=== PATIENT | male | born 1930 | race Caucasian/White ===

== ENCOUNTER 2017-07-29 02:00 | Emergency (ER) | payer MEDICARE ==
[~2017-07-29] VITALS: Ht 165.1 cm; Wt 52.0 kg
[2017-07-29 02:18] VITALS: BP 149/79; PULSE 82; RESP 18; TEMP 98.5; O2SAT 100
[2017-07-29 02:30] VITALS: O2SAT 96
--- NOTE | 2017-07-29 02:50 | PD ---
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 There is some spindle of blood bright red blood on the mask of the nonrebreather patient is satting 97 on the pulse ox on arrival. I order soft tissue lateral of the neck and the chief technologist places the recannulize is the stoma with the trach that came with the patient [facility] Past Medical History Diabetes: Yes Patient Takes Glucophage: No Psychiatric: Yes (DEMENTIA) Respiratory: Yes (RESP. FAILURE) Tetanus Vaccination: Unknown Past Surgical History Surgical History: Unable to Obtain Other Surgery: Yes (TRACH, G. TUBE.) Social History Alcohol Use: No Tobacco Use: No Substance Use: No Allergies-Medications (Allergen,Severity, Reaction): Coded Allergies: tomato (Unverified Allergy, Severe, 07/29/17) Reported Meds & Prescriptions Reported Meds & Active Scripts Active Reported Mupirocin Topical (Mupirocin) 2 % Oint 1 Applic TOPICAL BID Duoneb (Ipratropium-Albuterol Neb) 0.5-2.5 Mg/3 Ml Neb 1 Nebule INH Q8HR NEB Hyoscyamine Sulfate 0.125 Mg Sub Mg PEG Q4HR Heparin Lock Flush Inj (Heparin (Porcine) Lock Inj) 10 Unit/Ml Inj 5,000 SQ BID Glucerna (Nut.tx.glucose Intolerance,Soy) 1 Each Bar 50 Ml PEG Docusate Sodium 100 Mg Cap 100 Mg PEG BID Bisacodyl Laxative Supp (Bisacodyl) 10 Mg Supp 10 Mg RECTAL DAILY PRN Acetaminophen Liq (Acetaminophen) 160 Mg/5 Ml Elx 160 Mg PO Q4-6H PRN Metoclopramide (Metoclopramide HCl) 5 Mg Tab 5 Mg PO QID Humalog Inj (Insulin Human Lispro) 1,000 Unit/10 Ml Vial 5-25 Units SQ ACHS Max dose at bedtime:( )units; sugars < 70,(0)units; sugars 150-199,(5)units; sugars 200-249,(10)units; sugars 250-299,(15)units; sugars 300-349,(20)units; sugars more than 349,(25)units. Ferrous Sulfate Liq (Ferrous Sulfate) 300 Mg/5 Ml Soln 325 Mg PO BID Famotidine 20 Mg Tab 20 Mg PO DAILY Review of Systems ROS Limitations: Poor Historian, Other: (non verbal) Physical Exam Narrative GENERAL: Patient is nonverbal in no obvious distress he has some blood in the mask of the nonrebreather over his trach opening SKIN: Warm and dry. HEAD: Atraumatic. Normocephalic. EYES: Pupils equal and round. No scleral icterus. No injection or drainage. ENT: No nasal bleeding or discharge. Mucous membranes pink and moist. NECK: he has open stoma without trach , slight blood at the stoma no respiratory distress CARDIOVASCULAR: Regular rate and rhythm. RESPIRATORY: No accessory muscle use. Clear to auscultation. Breath sounds equal bilaterally. No respiratory distress GASTROINTESTINAL: Abdomen PEG in place MUSCULOSKELETAL: Extremities without clubbing, cyanosis, or edema. No obvious deformities. NEUROLOGICAL: Patient is nonverbal no obvious focal deficits patient is awake however he does not respond to questions Data Data Last Documented VS Vital Signs Date Time Temp Pulse Resp B/P (MAP) Pulse Ox O2 Delivery O2 Flow Rate FiO2 07/29/17 07:22 159/78 (105) 99 Trach Collar 15.00 50 07/29/17 07:21 71 18 07/29/17 02:18 98.5 Orders Orders Soft Tissue Neck (07/29/17 ) Ed Discharge Order (07/29/17 07:20) MDM Medical Decision Making Medical Screen Exam Complete: Yes Emergency Medical Condition: Yes Differential Diagnosis trach fall out vs pilled out vs post bleed airway Narrative Course trach replaced by resp therapist and suctioned and sent back to [facility] Diagnosis Primary Impression: Tracheostomy complication Qualified Codes: J95.00 - Unspecified tracheostomy complication Patient Instructions: General Instructions, Tracheostomy Care (ED) Disposition: 03 DISCHARGE TO SNF Condition: Paul Auguste MD Jul 29, 2017 02:50
--- NOTE | 2017-07-29 03:02 | RADRPT ---
EXAM DATE/TIME: 07/29/2017 02:31 [facility] COMPARISON: No previous studies available for comparison. INDICATIONS : Tracheostomy tube reinsertion. MEDICAL HISTORY : None. SURGICAL HISTORY : Tracheostomy ENCOUNTER: Initial ACUITY: 1 day PAIN SCORE: 0/10 LOCATION: neck FINDINGS: Trach collar present and appears grossly normally positioned. The tip cannot be seen on the lateral, obscured by overlying structures. CONCLUSION: The tracheostomy tube appears to be grossly normally positioned. Herman Christina MD on July 29, 2017 at 3:00 Board Certified Radiologist. This report was verified electronically.
[2017-07-29 06:06] VITALS: PULSE 73; RESP 16; O2SAT 95
[2017-07-29] MEDS ORDERED: HUMALOG SQ (06:50)
[2017-07-29] MEDS ORDERED: METO5TAB PO (06:50)
[2017-07-29] MEDS ORDERED: DOCU100S PO (06:50)
[2017-07-29] MEDS ORDERED: FAMO20TA2 PO (06:50)
[2017-07-29] MEDS ORDERED: FERR300S PO (06:50)
[2017-07-29] MEDS ORDERED: HYOS1TAB9 PO (06:50)
[2017-07-29 07:21] VITALS: BP 159/78; PULSE 71; RESP 18; O2SAT 100
[2017-07-29 07:22] VITALS: BP 159/78
[2017-07-30] MEDS ORDERED: IPRASOL INH (06:50)
[2017-07-30] MEDS ORDERED: [UNRECOGNIZED DRUG - CODE] PEG (06:50)
[2017-07-30] MEDS ORDERED: BISA10SU24 RECTAL (06:50)
[2017-07-30] MEDS ORDERED: [UNRECOGNIZED DRUG - CODE] SQ (06:50)
[2017-07-30] MEDS ORDERED: MUPI2OIN TOPICAL (06:50)
[2017-07-30] MEDS ORDERED: HYOS0.1261 PEG (06:50)
[2017-07-30] MEDS ORDERED: DOCU100C15 PEG (06:50)
[2017-07-30] MEDS ORDERED: ACET160E PO (06:50)
== END 2017-07-29 11:01 ==
LOC: NEPC 02:00
DX: J95.00 Unspecified tracheostomy complication (principal); E11.9 Type 2 diabetes mellitus without complications; F03.90 Unspecified dementia, unspecified severity, without behavioral disturbance, psychotic disturbance, mood disturbance, and anxiety; Z79.4 Long term (current) use of insulin; Z79.899 Other long term (current) drug therapy
CPT/HCPCS: 70360; 99283

== ENCOUNTER 2017-07-30 01:41 | Inpatient (IN) | payer MEDICARE ==
[~2017-07-30] VITALS: Ht 188 cm; Wt 68.5 kg
[2017-07-30] VITALS (23 sets, daily range): BP systolic 73–145; BP diastolic 41–70; PULSE 62–94; RESP 14–20; TEMP 97.7–98.4; O2SAT 98–100
[~2017-07-30 01:41] MED LIST: DOCU100S PO; FAMO20TA2 PO; FERR300S PO; HUMALOG SQ; HYOS1TAB9 PO; METO5TAB PO
[2017-07-30] MEDS ORDERED: SODIUM CHLORIDE 0.9% FLUSH 10 ML FLUSH IVF PRN (01:45)
--- NOTE | 2017-07-30 03:11 | PD ---
HPI Chief Complaint: Respiratory Distress Time Seen by Provider: 01:45 Travel History International Travel<30 days: No Contact w/Intl Traveler<30days: No Traveled to known affect area: No History of Present Illness HPI 86-year-old male residential patient with history of dementia, diabetes, trach and PEG, was here in the hospital yesterday because his tracheostomy fell out, tracheostomy was replaced in the ER. He is back here because he has been having rapid breathing, cyanotic, low saturations of 20% according to EMS when they got there. Apparently he has been having problems all day. He was disoriented although it appears that his baseline is GCS of 9. He is not able to give me any further history. They have been trying to suction his trach all day without improvement. Modifying Factors: None Associated Signs & Symptoms: Respiratory distress, hypoxia, cyanosis Risk Factors: Recent trach replacement PFSH Past Medical History Diabetes: Yes Patient Takes Glucophage: No Psychiatric: Yes (DEMENTIA) Respiratory: Yes (RESP. FAILURE) Past Surgical History Other Surgery: Yes (TRACH, G. TUBE.) Social History Alcohol Use: No Tobacco Use: No Substance Use: No Allergies-Medications (Allergen,Severity, Reaction): Coded Allergies: tomato (Unverified Allergy, Severe, 07/29/17) Reported Meds & Prescriptions Reported Meds & Active Scripts Active Reported Metoclopramide (Metoclopramide HCl) 5 Mg Tab 5 Mg PO QID Hyoscyamine (Hyoscyamine Sulfate) 0.125 Mg Tab 0.125 Mg PO Q4H Humalog Inj (Insulin Human Lispro) 1,000 Unit/10 Ml Vial 5-25 Units SQ ACHS Max dose at bedtime:( )units; sugars < 70,(0)units; sugars 150-199,(5)units; sugars 200-249,(10)units; sugars 250-299,(15)units; sugars 300-349,(20)units; sugars more than 349,(25)units. Ferrous Sulfate Liq (Ferrous Sulfate) 300 Mg/5 Ml Soln 325 Mg PO BID Docusate Sodium Liq (Docusate Sodium) 50 Mg/5 Ml Liq 100 Mg PO BID Famotidine 20 Mg Tab 20 Mg PO DAILY Review of Systems ROS Limitations: Altered Mental Status Physical Exam Narrative GENERAL: Well-developed elderly white male patient who is pegged and trached, awake but not oriented. In mild respiratory distress. Back valve mass in progress through trach. SKIN: Focused skin assessment warm/dry. HEAD: Atraumatic. Normocephalic. EYES: Pupils equal and round. No scleral icterus. No injection or drainage. ENT: No nasal bleeding or discharge. Mucous membranes pink and moist. NECK: Trachea midline. No JVD. Tracheostomy appears to be in place, bringing up brownish sputum. CARDIOVASCULAR: Regular rate and rhythm. No murmur appreciated. RESPIRATORY: Moderate accessory muscle use. Bilateral pulmonary crackles especially pronounced in the right side. Breath sounds equal bilaterally. GASTROINTESTINAL: Abdomen soft, non-tender, nondistended. Hepatic and splenic margins not palpable. MUSCULOSKELETAL: No obvious deformities. No clubbing. No cyanosis. No edema. NEUROLOGICAL: Awake and alert. Not oriented. Moving all 4 extremities. Not following directions. PSYCHIATRIC: Awake and not oriented; insight and judgment poor. Data Data Last Documented VS Vital Signs Date Time Temp Pulse Resp B/P (MAP) Pulse Ox O2 Delivery O2 Flow Rate FiO2 07/30/17 05:05 68 14 110/58 (75) 100 Ventilator 60 07/30/17 01:43 97.7 Orders Orders Complete Blood Count With Diff (07/30/17 01:45) Comprehensive Metabolic Panel (07/30/17:45) B-Type Natriuretic Peptide (07/30/17:45) Act Partial Throm Time (Ptt) (07/30/17:45) Prothrombin Time / Inr (Pt) (07/30/17:45) Ckmb (Isoenzyme) Profile (07/30/17:45) Troponin I (07/30/17:45) Arterial Blood Gas (Abg) (07/30/17:45) Blood Culture (07/30/17:45) Iv Access Insert/Monitor (07/30/17:45) Electrocardiogram (07/30/17:45) Ecg Monitoring (07/30/17:45) Oximetry (07/30/17:45) Oxygen Administration (07/30/17:45) Chest, Single Ap (07/30/17:45) Sodium Chloride 0.9% Flush (Ns Flush) (07/30/17:45) Sputum Culture And Gram Stain (07/30/17 01:54) Sodium Chlorid 0.9% 500 Ml Inj (Ns 500 M (07/30/17 03:30) Lactic Acid Sepsis Protocol (07/30/17 03:41) CKMB (07/30/17 01:55) CKMB% (07/30/17 01:55) Sodium Chlor 0.9% 1000 Ml Inj (Ns 1000 M (07/30/17 04:45) Azithromycin Inj (Zithromax Inj) (07/30/17 05:24) Cefepime Inj (Maxipime Inj) (07/30/17 05:24) Influenzae A/B Antigen (07/30/17 05:24) Admit Order (Ed Use Only) (07/30/17 05:24) Labs Laboratory Tests Test 07/30/17 01:55 07/30/17 02:06 07/30/17 03:55 White Blood Count 8.4 TH/MM3 Red Blood Count 2.91 MIL/MM3 Hemoglobin 9.3 GM/DL Hematocrit 26.8 % Mean Corpuscular Volume 92.2 FL Mean Corpuscular Hemoglobin 31.9 PG Mean Corpuscular Hemoglobin Concent 34.6 % Red Cell Distribution Width 15.0 % Platelet Count 222 TH/MM3 Mean Platelet Volume 7.6 FL Neutrophils (%) (Auto) 86.6 % Lymphocytes (%) (Auto) 6.4 % Monocytes (%) (Auto) 5.8 % Eosinophils (%) (Auto) 0.6 % Basophils (%) (Auto) 0.6 % Neutrophils # (Auto) 7.3 TH/MM3 Lymphocytes # (Auto) 0.5 TH/MM3 Monocytes # (Auto) 0.5 TH/MM3 Eosinophils # (Auto) 0.1 TH/MM3 Basophils # (Auto) 0.0 TH/MM3 CBC Comment DIFF FINAL Differential Comment Prothrombin Time 10.8 SEC Prothromb Time International Ratio 1.1 RATIO Activated Partial Thromboplast Time 31.3 SEC Blood Urea Nitrogen 44 MG/DL Creatinine 1.12 MG/DL Random Glucose 144 MG/DL Total Protein 6.3 GM/DL Albumin 2.1 GM/DL Calcium Level 8.2 MG/DL Alkaline Phosphatase 151 U/L Aspartate Amino Transf (AST/SGOT) 62 U/L Alanine Aminotransferase (ALT/SGPT) 56 U/L Total Bilirubin 0.3 MG/DL Sodium Level 134 MEQ/L Potassium Level 4.8 MEQ/L Chloride Level 94 MEQ/L Carbon Dioxide Level 35.1 MEQ/L Anion Gap 5 MEQ/L Estimat Glomerular Filtration Rate 62 ML/MIN Total Creatine Kinase 121 U/L Creatine Kinase MB 7.9 NG/ML Troponin I LESS THAN 0.02 NG/ML B-Type Natriuretic Peptide 173 PG/ML Blood Gas Puncture Site RT RADIAL Blood Gas Patient Temperature 98.6 Blood Gas HCO3 36 mmol/L Blood Gas Base Excess 11.2 mmol/L Blood Gas Oxygen Saturation 96 % Arterial Blood pH 7.43 Arterial Blood Partial Pressure CO2 56 mmHg Arterial Blood Partial Pressure O2 115 mmHG Arterial Blood Oxygen Content 12.2 Vol % Arterial Blood Carboxyhemoglobin 2.1 % Arterial Blood Methemoglobin 0.4 % Blood Gas Hemoglobin 8.9 G/DL Oxygen Delivery Device VENTILATOR Blood Gas Ventilator Setting PRVC Lactic Acid Level 1.3 mmol/L MDM Medical Decision Making Medical Screen Exam Complete: Yes Emergency Medical Condition: Yes Medical Record Reviewed: Yes Interpretation(s) Laboratory Tests Test 07/30/17 01:55 07/30/17 02:06 07/30/17 03:55 Red Blood Count 2.91 MIL/MM3 (4.50-5.90) Hemoglobin 9.3 GM/DL (13.0-17.0) Hematocrit 26.8 % (39.0-51.0) Neutrophils (%) (Auto) 86.6 % (16.0-70.0) Lymphocytes (%) (Auto) 6.4 % (9.0-44.0) Lymphocytes # (Auto) 0.5 TH/MM3 (1.0-4.8) Activated Partial Thromboplast Time 31.3 SEC (24.3-30.1) Blood Urea Nitrogen 44 MG/DL (7-18) Random Glucose 144 MG/DL (74-106) Total Protein 6.3 GM/DL (6.4-8.2) Albumin 2.1 GM/DL (3.4-5.0) Calcium Level 8.2 MG/DL (8.5-10.1) Alkaline Phosphatase 151 U/L (45-117) Aspartate Amino Transf (AST/SGOT) 62 U/L (15-37) Sodium Level 134 MEQ/L (136-145) Chloride Level 94 MEQ/L (98-107) Carbon Dioxide Level 35.1 MEQ/L (21.0-32.0) Estimat Glomerular Filtration Rate 62 ML/MIN (>89) Creatine Kinase MB 7.9 NG/ML (0.5-3.6) Troponin I LESS THAN 0.02 NG/ML B-Type Natriuretic Peptide 173 PG/ML (0-100) Blood Gas HCO3 36 mmol/L (22-26) Blood Gas Base Excess 11.2 mmol/L (-2-2) Arterial Blood pH 7.43 (7.380-7.420) Arterial Blood Partial Pressure CO2 56 mmHg (38-42) Blood Gas Hemoglobin 8.9 G/DL (12.0-16.0) Differential Diagnosis Pneumonia versus aspiration versus CHF versus trach malfunction Narrative Course Chest x-ray shows bilateral infiltrates throughout the lungs concerning for bilateral pneumonia. Patient was fairly hypotensive and several boluses of IV fluids were given in the ER. IV antibiotics were initiated after blood cultures were drawn. 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 Aggregate critical care time was 30 minutes. Time to perform other separately billable procedures was not included in the critical care time. My time did not include minutes spent treating any other patients simultaneously or on activities that did not directly contribute to the patient's treatment. The services I provided to this patient were to treat and/or prevent clinically significant deterioration that could result in: Worsening sepsis, respiratory arrest, I provided critical care services requiring my management, as noted below: Chart data review, documentation time, medication orders and management, vital sign assessments/reviewing monitor data, ordering and reviewing lab tests, ordering and interpreting/reviewing x-rays and diagnostic studies, care of the patient and discussion of the patient with the admitting physicians. Diagnosis Primary Impression: Respiratory distress Additional Impressions: Bilateral pneumonia Hypoxia Admitting Information Admitting Physician Requests: Admit Gold Clarke MD Jul 30, 2017 03:11
--- NOTE | 2017-07-30 03:19 | RADRPT ---
EXAM DATE/TIME: 07/30/2017 03:00 [facility] COMPARISON: No previous studies available for comparison. INDICATIONS : Shortness of breath. MEDICAL HISTORY : None. SURGICAL HISTORY : Tracheostomy ENCOUNTER: Subsequent ACUITY: 2 days PAIN SCORE: Non-responsive. LOCATION: Bilateral chest FINDINGS: Patchy combination of interstitial and airspace opacities involve both lungs. There is a focal area o f more confluent consolidation laterally in the left midlung. Small, bilateral pleural effusions are likely. I don't see a pneumothorax. A tracheostomy tube is present. CONCLUSION: Widespread patchy parenchymal opacities of both lungs. Herman Christina MD on July 30, 2017 at 3:16 Board Certified Radiologist. This report was verified electronically.
[2017-07-30] MEDS ORDERED: SODIUM CHLORID 0.9% 500 ML INJ 500 ML IV ONE (03:30)
[2017-07-30 03:37] LABS: AUTOMATED NEUTROPHIL # 7.3 TH/MM3 (1.8-7.7); BASOPHIL % 0.6 % (0.0-2.0); EOSINOPHIL # 0.1 TH/MM3 (0-0.4); EOSINOPHIL % 0.6 % (0.0-4.0); HEMATOCRIT 26.8 % (39.0-51.0); HEMOGLOBIN 9.3 GM/DL (13.0-17.0); LYMPH % 6.4 % (9.0-44.0); LYMPHOCYTE # 0.5 TH/MM3 (1.0-4.8); MEAN CELL VOLUME 92.2 FL (80.0-100.0); MEAN CORPUSCULAR HEMOGLOBIN 31.9 PG (27.0-34.0); MEAN CORPUSCULAR HGB CONC 34.6 % (32.0-36.0); MEAN PLATELET VOLUME 7.6 FL (7.0-11.0); MONO % 5.8 % (0.0-8.0); MONOCYTE # 0.5 TH/MM3 (0-0.9); NEUT % 86.6 % (16.0-70.0); PLATELET COUNT 222 TH/MM3 (150-450); RED BLOOD COUNT 2.91 MIL/MM3 (4.50-5.90); WHITE BLOOD COUNT 8.4 TH/MM3 (4.0-11.0)
[2017-07-30 04:03] LABS: INTERNATIONAL NORMALIZED RATIO 1.1 RATIO; PROTHROMBIN TIME - PATIENT 10.8 SEC (9.8-11.6)
[2017-07-30 04:10] LABS: ALBUMIN 2.1 GM/DL (3.4-5.0); AST (GOT) 62 U/L (15-37); BICARBONATE 35.1 MEQ/L (21.0-32.0); BLOOD UREA NITROGEN 44 MG/DL (7-18); CALCIUM 8.2 MG/DL (8.5-10.1); CHLORIDE 94 MEQ/L (98-107); CREATININE 1.12 MG/DL (0.60-1.30); GLOMERULAR FILTRATION RATE 62 ML/MIN (>89); GLUCOSE,RANDOM 144 MG/DL (74-106); SODIUM (NA) 134 MEQ/L (136-145)
[2017-07-30 04:13] LABS: ALKALINE PHOSPHATASE 151 U/L (45-117); ALT (GPT) 56 U/L (12-78); TOTAL BILIRUBIN ADULT 0.3 MG/DL (0.2-1.0); TOTAL PROTEIN 6.3 GM/DL (6.4-8.2); TROPONIN I LESS THAN 0.02 NG/ML (0.02-0.05)
[2017-07-30] MEDS ORDERED: SODIUM CHLOR 0.9% 1000 ML INJ 1,000 ML IV ONE (04:45)
[2017-07-30] MEDS ORDERED: AZITHROMYCIN INJ 500 MG in SODIUM CHLOR 0.9% 250 ML INJ 250 ML IV STA (05:24)
[2017-07-30] MEDS ORDERED: CEFEPIME INJ 2,000 MG in SODIUM CHLORIDE 0.9% INJ 100 ML IV STA (05:24)
[2017-07-30] MEDS ORDERED: HYOS0.1261 PEG (06:50)
[2017-07-30] MEDS ORDERED: IPRASOL INH (06:50)
[2017-07-30] MEDS ORDERED: BISA10SU24 RECTAL (06:50)
[2017-07-30] MEDS ORDERED: ACET160E PO (06:50)
[2017-07-30] MEDS ORDERED: [UNRECOGNIZED DRUG - CODE] PEG (06:50)
[2017-07-30] MEDS ORDERED: [UNRECOGNIZED DRUG - CODE] SQ (06:50)
[2017-07-30] MEDS ORDERED: DOCU100C15 PEG (06:50)
[2017-07-30] MEDS ORDERED: MUPI2OIN TOPICAL (06:50)
[2017-07-30] MEDS ORDERED: MISCELLANEOUS NURSING INFORMATION XX SCH (08:00)
[2017-07-30] MEDS ORDERED: SENNOSIDES 8.6 MG TAB PO PRN (08:00)
[2017-07-30] MEDS ORDERED: MAGNESIUM SULFATE INJ 4 GM in SODIUM CHLORIDE 0.9% INJ 92 ML IV PRN (08:00)
[2017-07-30] MEDS ORDERED: CHLORHEXIDINE GLUCONATE 2 % 1 PACK (2 CLOTHS) TOP PRN (08:00)
[2017-07-30] MEDS ORDERED: SODIUM PHOSPHATE INJ 30 MMOL in SODIUM CHLOR 0.9% 250 ML INJ 240 ML IV PRN (08:00)
[2017-07-30] MEDS ORDERED: POTASSIUM PHOSPHATE INJ 30 MMOL in SODIUM CHLOR 0.9% 250 ML INJ 250 ML IV PRN (08:00)
[2017-07-30] MEDS ORDERED: SODIUM CHLORIDE 0.9% FLUSH 10 ML FLUSH IV FLUSH PRN (08:00)
[2017-07-30] MEDS ORDERED: POTASSIUM CHLOR 40 MEQ PREMIX 100 ML IV PRN ×2 (08:00)
[2017-07-30] MEDS ORDERED: LACTULOSE SYRUP 20 GM/30 ML CUP PO PRN (08:00)
[2017-07-30] MEDS ORDERED: MAGNESIUM OXIDE 400 MG TAB PO PRN (08:00)
[2017-07-30] MEDS ORDERED: MAGNESIUM HYDROXIDE SUSP 30 ML CUP PO PRN (08:00)
[2017-07-30] MEDS ORDERED: POTASSIUM PHOSPHATE MONOBASIC 500 MG TAB PO/TUBE PRN (08:00)
[2017-07-30] MEDS: SODIUM CHLOR 0.9% 1000 ML INJ 1,000 ML IV SCH (08:00)
[2017-07-30] MEDS ORDERED: POTASSIUM PHOSPHATE MONOBASIC 500 MG TAB PO PRN (08:00)
[2017-07-30] MEDS ORDERED: BISACODYL 10 MG SUPP RECTAL PRN (08:00)
[2017-07-30] MEDS: CHLORHEXIDINE 0.12% (ORAL KIT) 15 ML CUP MT SCH ×2 (08:00→19:48)
[2017-07-30] MEDS ORDERED: RESP: ALBUTEROL 2.5 MG/IPRATROPIUM 0.5 MG NEB (PRN) INH (08:00)
[2017-07-30] MEDS ORDERED: POTASSIUM CHLORIDE 25 MEQ EFFERVESCENT TAB PO PRN (08:00)
[2017-07-30] MEDS ORDERED: MAGNESIUM SULFATE INJ 2 GM in SODIUM CHLORIDE 0.9% INJ 96 ML IV PRN (08:00)
--- NOTE | 2017-07-30 08:36 | HHI.HP ---
HPI Service Critical Care Medicine Primary Care Physician Unknown Admission Diagnosis Respiratory distress/hypoxia/pneumonia/severe sepsis Diagnosis: Travel History International Travel<30 Days: No Contact w/Intl Traveler <30 Da: No Traveled to Known Affected Are: No History of Present Illness HPI This is a 86-year-old male, SNF patient with history of dementia, diabetes, trach and PEG, that was previously admitted on 07/29/17 , after pulling out/ dislodgment of pre-existing tracheostomy. A soft tissue xray of the neck was performed and the tracheostomy was recannulated in the ED. Early this a.m.,the patient was emergently transported back to the ED, due to dyspnea tachypnea reported O2 sat duration 6 in the 20s on presentation. SNF staff reported that the has been having respiratory distress without the day. Multiple attempts to suction his trach all day without improvement. Report the patient was disoriented, and his baseline is GCS of 9. Critical care medicine was consulted Modifying Factors: None Associated Signs & Symptoms: Respiratory distress, hypoxia, cyanosis Risk Factors: Recent trach replacement History PFSH Past Medical History Diabetes: Yes Patient Takes Glucophage: No Psychiatric: Yes (DEMENTIA) Respiratory: Yes (RESP. FAILURE) Past Surgical History Other Surgery: Yes (TRACH, G. TUBE.) Social History Alcohol Use: No Tobacco Use: No Substance Use: No Allergies-Medications Allergies-Medications (Allergen,Severity, Reaction): Coded Allergies: tomato (Unverified Allergy, Severe, 07/29/17) Reported Meds & Prescriptions Reported Meds & Active Scripts Active Reported Metoclopramide (Metoclopramide HCl) 5 Mg Tab 5 Mg PO QID Hyoscyamine (Hyoscyamine Sulfate) 0.125 Mg Tab 0.125 Mg PO Q4H Humalog Inj (Insulin Human Lispro) 1,000 Unit/10 Ml Vial 5-25 Units SQ ACHS Max dose at bedtime:( )units; sugars < 70,(0)units; sugars 150-199,(5)units; sugars 200-249,(10)units; sugars 250-299,(15)units; sugars 300-349,(20)units; sugars more than 349,(25)units. Ferrous Sulfate Liq (Ferrous Sulfate) 300 Mg/5 Ml Soln 325 Mg PO BID Docusate Sodium Liq (Docusate Sodium) 50 Mg/5 Ml Liq 100 Mg PO BID Famotidine 20 Mg Tab 20 Mg PO DAILY ROS Review of Systems ROS Limitations: Altered Mental Status Physical Exam Vital Signs Vital Signs Date Time Temp Pulse Resp B/P (MAP) Pulse Ox O2 Delivery O2 Flow Rate FiO2 07/30/17 07:47 100 50 07/30/17 07:20 98 50 07/30/17 07:08 68 18 111/53 (72) 100 Ventilator 50 07/30/17 06:30 75 14 111/63 (79) 100 Ventilator 50 07/30/17 05:36 100 50 07/30/17 05:30 81 14 145/70 (95) 100 Ventilator 50 07/30/17 05:05 68 14 110/58 (75) 100 Ventilator 60 07/30/17 04:51 84 14 105/56 (72) 100 Ventilator 60 07/30/17 04:30 66 14 73/47 (56) 100 Ventilator 60 07/30/17 04:00 74 14 82/41 (55) 100 Ventilator 60 07/30/17 03:30 83 14 100/53 (69) 100 Ventilator 60 07/30/17 03:25 94 14 83/45 (58) 100 Ventilator 60 07/30/17 01:55 82 14 98 Ventilator 60 07/30/17 01:55 98 Ventilator 60 07/30/17 01:55 14 98 Ventilator 60 07/30/17 01:43 97.7 92 14 141/67 (91) 98 07/30/17 01:40 98 60 Physical Exam GENERAL: Is an elderly well-developed well-nourished chronically ill-appearing male in mild distress currently on mechanical ventilation SKIN: Warm and dry. HEAD: Atraumatic. Normocephalic. EYES: Pupils equal and round. No scleral icterus. No injection or drainage. ENT: No nasal bleeding or discharge. Mucous membranes pink and moist. NECK: Trachea midline. Tracheostomy in situ. Dried blood noted around trach site, no active bleeding noted. No JVD. CARDIOVASCULAR: Normal rate, regular rhythm. RESPIRATORY: No accessory muscle use. Coarse rhonchi bilateral bases. Breath sounds equal bilaterally. GASTROINTESTINAL: Abdomen soft, non-tender, nondistended. No guarding. Slightly soiled abdominal binder enclosing PEG tube, no noted bruising or drainage MUSCULOSKELETAL: Extremities without clubbing, cyanosis, or edema. Osteoarthritic changes noted. Brisk capillary refill bilateral lower extremities NEUROLOGICAL: Awake and alert. RASS 0. No gross focal/sensory deficits. Follows commands in all 4 extremities. : [facility] Laboratory Laboratory Tests Test 07/30/17 01:55 07/30/17 02:06 07/30/17 03:55 White Blood Count 8.4 Red Blood Count 2.91 Hemoglobin 9.3 Hematocrit 26.8 Mean Corpuscular Volume 92.2 Mean Corpuscular Hemoglobin 31.9 Mean Corpuscular Hemoglobin Concent 34.6 Red Cell Distribution Width 15.0 Platelet Count 222 Mean Platelet Volume 7.6 Neutrophils (%) (Auto) 86.6 Lymphocytes (%) (Auto) 6.4 Monocytes (%) (Auto) 5.8 Eosinophils (%) (Auto) 0.6 Basophils (%) (Auto) 0.6 Neutrophils # (Auto) 7.3 Lymphocytes # (Auto) 0.5 Monocytes # (Auto) 0.5 Eosinophils # (Auto) 0.1 Basophils # (Auto) 0.0 CBC Comment DIFF FINAL Differential Comment Prothrombin Time 10.8 Prothromb Time International Ratio 1.1 Activated Partial Thromboplast Time 31.3 Blood Urea Nitrogen 44 Creatinine 1.12 Random Glucose 144 Total Protein 6.3 Albumin 2.1 Calcium Level 8.2 Alkaline Phosphatase 151 Aspartate Amino Transf (AST/SGOT) 62 Alanine Aminotransferase (ALT/SGPT) 56 Total Bilirubin 0.3 Sodium Level 134 Potassium Level 4.8 Chloride Level 94 Carbon Dioxide Level 35.1 Anion Gap 5 Estimat Glomerular Filtration Rate 62 Total Creatine Kinase 121 Creatine Kinase MB 7.9 Troponin I LESS THAN 0.02 B-Type Natriuretic Peptide 173 Blood Gas Puncture Site RT RADIAL Blood Gas Patient Temperature 98.6 Blood Gas HCO3 36 Blood Gas Base Excess 11.2 Blood Gas Oxygen Saturation 96 Arterial Blood pH 7.43 Arterial Blood Partial Pressure CO2 56 Arterial Blood Partial Pressure O2 115 Arterial Blood Oxygen Content 12.2 Arterial Blood Carboxyhemoglobin 2.1 Arterial Blood Methemoglobin 0.4 Blood Gas Hemoglobin 8.9 Oxygen Delivery Device VENTILATOR Blood Gas Ventilator Setting PRVC Lactic Acid Level 1.3 Date/Time Source Procedure Growth Status 07/30/17 03:15 Blood Peripheral Aerobic Blood Culture Pending Received 07/30/17 03:15 Blood Peripheral Anaerobic Blood Culture Pending Received 07/30/17 05:35 Nasal Washing Influenza Types A,B Antigen (ADIN) - Final NEGATIVE FOR FLU A AND B ANTIGEN.... Complete Result Diagram: 07/30/1715407/30/17154 Imaging Last Impressions Chest X-Ray 07/30/17144 Signed Impressions: Service Date/Time: Sunday, July 30, 2017 03:00 - CONCLUSION: Widespread patchy parenchymal opacities of both lungs. Herman Christina MD Septic Shock Reassessment Septic shock perfusion: reassessment completed Caprini VTE Risk Assessment Caprini VTE Risk Assessment: Mod/High Risk (score >= 2) Caprini Risk Assessment Model Point Value = 1 Point Value = 2 Point Value = 3 Point Value = 5 Age 41-60 Minor surgery BMI > 25 kg/m2 Swollen legs Varicose veins or History of unexplained or recurrent spontaneous Oral contraceptives or hormone replacement Sepsis (< 1 month) Serious lung disease, including pneumonia (< 1 month) Abnormal pulmonary function Acute myocardial infarction Congestive heart failure (< 1 month) History of inflammatory bowel disease Medical patient at bed rest Age 61-74 Arthroscopic surgery Major open surgery (> 45 min) Laparoscopic surgery (> 45 min) Malignancy Confined to bed (> 72 hours) Immobilizing plaster cast Central venous access Age >= 75 History of VTE Family history of VTE Factor V Leiden Prothrombin [id number] Lupus anticoagulant Anticardiolipin antibodies Elevated serum homocysteine Heparin-induced thrombocytopenia Other congenital or acquired thrombophilia Stroke (< 1 month) Elective arthroplasty Hip, pelvis, or leg fracture Acute spinal cord injury (< 1 month) Prophylaxis Regimen Total Risk Factor Score Risk Level Prophylaxis Regimen 0-1 Low Early ambulation 2 Moderate Order ONE of the following: *Sequential Compression Device (SCD) *Heparin 5000 units SQ BID 3-4 Higher Order ONE of the following medications: *Heparin 5000 units SQ TID *Enoxaparin/Lovenox 40 mg SQ daily (WT < 150 kg, CrCl > 30 mL/min) *Enoxaparin/Lovenox 30 mg SQ daily (WT < 150 kg, CrCl > 10-29 mL/min) *Enoxaparin/Lovenox 30 mg SQ BID (WT < 150 kg, CrCl > 30 mL/min) AND/OR *Sequential Compression Device (SCD) 5 or more Highest Order ONE of the following medications: *Heparin 5000 units SQ TID (Preferred with Epidurals) *Enoxaparin/Lovenox 40 mg SQ daily (WT < 150 kg, CrCl > 30 mL/min) *Enoxaparin/Lovenox 30 mg SQ daily (WT < 150 kg, CrCl > 10-29 mL/min) *Enoxaparin/Lovenox 30 mg SQ BID (WT < 150 kg, CrCl > 30 mL/min) AND *Sequential Compression Device (SCD) Assessment and Plan Problem List: (1) Respiratory distress ICD Code: R06.03 - Acute respiratory distress Status: Acute (2) Hypoxia ICD Code: R09.02 - Hypoxemia Status: Acute (3) Bilateral pneumonia ICD Code: J18.9 - Pneumonia, unspecified organism Status: Acute Assessment and Plan Assessment This is a chronically ill 86-year-old male admitted from [facility], after tracheal dislodgment and recannulization less than 24 hours, now with acute hypercapnic and hypoxemic respiratory failure,requiring ventilator management. Imaging studies revealing multilobar pneumonia Admit to ICU. Plan by systems: Neurologic: Toxic encephalopathy-most likely secondary to sepsis Neurochecks per ICU protocol Avoid long-acting sedatives Respiratory: S/P tracheostomy dislodgment with recannulization (07/29) Acute hypoxemic and hypercapnic respiratory failure Healthcare associated pneumonia Maintain O2 saturation greater than 92%, currently 99% Mechanical vent settings 14/500/50/5 In the ED the patient received 1 dose of azithromycin, and cefepime See antibiotics below Duo nebs every 6 hours scheduled, and every 2 hours when necessary Ventilator bundle F/U sputum culture Cardiovascular: Congestive heart failure-type unknown Maintain MAP greater than 65 Telemetry sinus rhythm BNP 173 Initial troponin <0.02 Renal: Martinez in situ from [facility] Replaced Martinez catheter-then obtain UA, C&S -- Strict I/Os FEN/GI: Transaminitis Electrolyte derangement Maintain NPO status for now 07/30 Received 2 L normal saline IV in ED Continue gentle hydration NSS 42 cc/hr Dietary consult for tube feeds- Glucerna Continue home dosing of Reglan 5 mg QID Zofran for nausea Bowel regimen Famotidine for GI prophylaxis Monitor CMP-Sodium 134, alkaline phosphatase 151 ALT 56, AST 61 Replete electrolytes per ICU protocol Heme/ID: Healthcare associated pneumonia Monitor CBC Follow-up urine blood and sputum cultures Empiric antibiotics Azithromycin and cefepime (day 1) Influenza A/B-negative Obtain pneumococcal antigen Endocrine: Diabetes mellitus -- SSI -low dose regimen Skin: Heel noted with sacral wound, and 2 skin tears right upper back, lateral lower extremities and raising boots Prophylaxis: GI Prophylaxis Famotidine DVT Prophylaxis -- SCDs Heparin 5000 twice a day Lines: Peripheral IVs 2. Central line if indicated Dispo: my billing statement This patient remains critically ill with one or more organ systems which are or may become a threat to life. I have spent in excess of 45 minutes discontinuously in the care and management of this patient. This time is exclusive of procedures, and includes, but is not limited to, evaluation of the patient, review of the medical record, discussions with family, consultants, nursing staff, or respiratory therapy, and documentation in the medical record. Code Status FULL- confirmed with SNF Discussed Condition With Dr. Oneill, ED and [facility] at bedside Chelsy Ballard MD Jul 30, 2017 08:36
[2017-07-30] MEDS: RESP: ALBUTEROL 2.5 MG/IPRATROPIUM 0.5 MG NEB (SCH) INH ×3 (08:58→20:40)
[2017-07-30] MEDS: METOCLOPRAMIDE HCL 10 MG TAB PO SCH ×4 (09:00→19:48)
[2017-07-30] MEDS: SODIUM CHLORIDE 0.9% FLUSH 10 ML FLUSH IV FLUSH SCH ×2 (09:00→19:48)
[2017-07-30] MEDS: DOCUSATE SODIUM 50 MG/SENNA 8.6 MG TAB PO SCH ×2 (09:00→19:47)
[2017-07-30] MEDS: FAMOTIDINE 20 MG/2 ML VIAL IV PUSH SCH ×2 (09:00→19:48)
[2017-07-30] MEDS: FERROUS SULFATE 300 MG /5ML UDC PO SCH ×2 (09:00→19:48)
[2017-07-30] MEDS: HEPARIN SODIUM - SQ 10,000 UNITS/ML VIAL SQ SCH ×2 (09:00→19:47)
[2017-07-30] MEDS ORDERED: PILL SPLITTER OTHER PRN (09:15)
--- NOTE | 2017-07-30 10:04 | EKG ---
Date Performed: 07/30/2017 Time Performed: 03:30:34 PTAGE: 86 years EKG: Baseline artifact present Sinus rhythm NONSPECIFIC T-WAVE ABNORMALITY ABNORMAL ECG Compared to prior electrocardiogram, rate has increased and Nonspecific T wave changes are now present PREVIOUS TRACING : 10/04/2004 09.48 DOCTOR: Lucius Jorge Interpretating Date/Time 07/30/2017 10:03:06
[2017-07-30 10:44] LABS: AMORPHOUS SEDIMENT, URINE RARE; BACTERIA, URINE OCC /hpf; BILIRUBIN, URINE NEG (NEG); BLOOD, URINE SMALL (NEG); CALCIUM OXALATE CRYSTALS,URINE RARE /hpf; GLUCOSE,URINE NEG (NEG); HYALINE CAST, URINE 2 /lpf (RARE); KETONE, URINE NEG (NEG); MUCUS URINE FEW /lpf (OCC); NITRITE,URINE NEG (NEG); PH, URINE 5.5 (5.0-8.5); URINE COLOR YELLOW (YELLW/STRAW); URINE LEUKOCYTE ESTERASE LARGE (NEG)
[2017-07-30] MEDS: CEFEPIME INJ 2,000 MG in SODIUM CHLORIDE 0.9% INJ 100 ML IV SCH ×2 (16:24→21:36)
[2017-07-30] MEDS: MUPIROCIN 2% OINT 1 APPLIC/GM SYR NASAL SCH (19:48)
[2017-07-31] VITALS (15 sets, daily range): BP systolic 91–118; BP diastolic 51–80; PULSE 57–79; RESP 14–42; TEMP 98.1–100.5; O2SAT 95–100
[2017-07-31] MEDS: RESP: ALBUTEROL 2.5 MG/IPRATROPIUM 0.5 MG NEB (SCH) INH ×4 (03:45→21:14)
[2017-07-31] MEDS: CHLORHEXIDINE GLUCONATE 2 % 1 PACK (2 CLOTHS) TOP SCH ×2 (04:00→19:53)
[2017-07-31 04:55] LABS: AUTOMATED NEUTROPHIL # 2.9 TH/MM3 (1.8-7.7); BASOPHIL # 0.1 TH/MM3 (0-0.2); BASOPHIL % 1.2 % (0.0-2.0); EOSINOPHIL # 0.2 TH/MM3 (0-0.4); EOSINOPHIL % 3.4 % (0.0-4.0); HEMATOCRIT 21.1 % (39.0-51.0); HEMOGLOBIN 7.2 GM/DL (13.0-17.0); LYMPHOCYTE # 1.4 TH/MM3 (1.0-4.8); MEAN CELL VOLUME 92.7 FL (80.0-100.0); MEAN CORPUSCULAR HEMOGLOBIN 31.8 PG (27.0-34.0); MEAN CORPUSCULAR HGB CONC 34.3 % (32.0-36.0); MEAN PLATELET VOLUME 6.9 FL (7.0-11.0); MONO % 9.7 % (0.0-8.0); MONOCYTE # 0.5 TH/MM3 (0-0.9); NEUT % 57.7 % (16.0-70.0); PLATELET COUNT 186 TH/MM3 (150-450); RED BLOOD COUNT 2.28 MIL/MM3 (4.50-5.90); RED CELL DISTRIBUTION WIDTH 14.9 % (11.6-17.2); WHITE BLOOD COUNT 5.1 TH/MM3 (4.0-11.0)
[2017-07-31 05:15] LABS: BICARBONATE 33.1 MEQ/L (21.0-32.0); CALCIUM 7.7 MG/DL (8.5-10.1); CREATININE 1.01 MG/DL (0.60-1.30); MAGNESIUM 2.3 MG/DL (1.5-2.5); PHOSPHORUS 2.8 MG/DL (2.5-4.9)
[2017-07-31] MEDS: CEFEPIME INJ 2,000 MG in SODIUM CHLORIDE 0.9% INJ 100 ML IV SCH ×3 (05:36→22:33)
[2017-07-31] MEDS: POTASSIUM CHLOR 20 MEQ PREMIX 100 ML IV PRN ×2 (05:55→08:44)
[2017-07-31] MEDS: AZITHROMYCIN INJ 500 MG in SODIUM CHLOR 0.9% 250 ML INJ 250 ML IV SCH (05:55)
--- NOTE | 2017-07-31 06:16 | RADRPT ---
EXAM DATE/TIME: 07/31/2017 05:07 [facility] COMPARISON: CHEST SINGLE AP, July 30, 2017, 3:00. INDICATIONS : Short of breath. MEDICAL HISTORY : None. SURGICAL HISTORY : Tracheostomy. ENCOUNTER: Subsequent ACUITY: 2 days PAIN SCORE: 0/10 LOCATION: Bilateral chest FINDINGS: Unchanged diffuse bowel pulmonary infiltrates. Tiny right effusion question. Heart is mildly enlarged . Tracheostomy tube noted. CONCLUSION: Unchanged diffuse pulmonary infiltrates. Houston Martinez Jr., MD on July 31, 2017 at 6:13 Board Certified Radiologist. This report was verified electronically.
[2017-07-31] MEDS: SODIUM CHLOR 0.9% 1000 ML INJ 1,000 ML IV SCH (07:49)
[2017-07-31] MEDS: CHLORHEXIDINE 0.12% (ORAL KIT) 15 ML CUP MT SCH ×2 (08:00→20:00)
[2017-07-31] MEDS: FAMOTIDINE 20 MG/2 ML VIAL IV PUSH SCH ×2 (08:41→20:20)
[2017-07-31] MEDS: SODIUM CHLORIDE 0.9% FLUSH 10 ML FLUSH IV FLUSH SCH ×2 (08:41→20:17)
[2017-07-31] MEDS: HEPARIN SODIUM - SQ 10,000 UNITS/ML VIAL SQ SCH ×2 (08:42→20:17)
[2017-07-31] MEDS: DOCUSATE SODIUM 50 MG/SENNA 8.6 MG TAB PO SCH ×2 (08:42→20:18)
[2017-07-31] MEDS: FERROUS SULFATE 300 MG /5ML UDC PO SCH ×2 (08:42→20:18)
[2017-07-31] MEDS: METOCLOPRAMIDE HCL 10 MG TAB PO SCH ×4 (08:43→20:18)
[2017-07-31] MEDS: MUPIROCIN 2% OINT 1 APPLIC/GM SYR NASAL SCH ×2 (08:44→20:19)
--- NOTE | 2017-07-31 11:55 | HHI.CCPN ---
Subjective Remarks/Hospital Course This is a 86-year-old male, SNF patient with history of dementia, diabetes, trach and PEG, that was previously admitted on 07/29/17 , after pulling out/ dislodgment of pre-existing tracheostomy. A soft tissue xray of the neck was performed and the tracheostomy was recannulated in the ED. Early this a.m.,the patient was emergently transported back to the ED, due to dyspnea tachypnea reported O2 sat duration apparently 20% according to EMS when they got to [place]. SNF staff reported that the has been having respiratory distress without the day. Multiple attempts to suction his trach all day without improvement. Report the patient was disoriented, and his baseline is GCS of 9. Critical care medicine was consulted SUBJ 07/31: Remains critically ill with bilateral diffuse pneumonia. Oxygenation has improved. Possible pseudomonal antigen positive. Currently on antipseudomonal dosage of cefepime. Objective Vital Signs Date Time Temp Pulse Resp B/P (MAP) Pulse Ox O2 Delivery O2 Flow Rate FiO2 07/31/17 10:02 97 35 07/31/17 04:00 98.1 60 14 99/51 (67) 07/30/17 07:08 Ventilator Intake and Output 07/31/17 07/31/17 08/01/17 08:00 16:00 00:00 Intake Total 100 ml Output Total 475 ml Balance -375 ml Result Diagram: 07/31/17 0404 07/31/17 0404 Other Results Microbiology Date/Time Source Procedure Growth Status 07/30/17 05:35 Nasal Washing Influenza Types A,B Antigen (ADIN) - Final NEGATIVE FOR FLU A AND B ANTIGEN.... Complete 07/30/17 10:21 Urine Catheterized Urine Streptococcus pneumoniae Antigen (M - Final Pos S.pneumoniae Antigen Complete Imaging Last Impressions Chest X-Ray 07/30/17 0145 Signed Impressions: Service Date/Time: Sunday, July 30, 2017 03:00 - CONCLUSION: Widespread patchy parenchymal opacities of both lungs. Herman Christina MD Objective Remarks GENERAL: Is an elderly chronically ill-appearing currently on mechanical ventilation, appears critically ill SKIN: Warm and dry. HEAD: Atraumatic. Normocephalic. EYES: Pupils equal and round. ENT: No nasal bleeding or discharge. Mucous membranes dry NECK: Trachea midline. Tracheostomy in situ. Dried blood noted around trach site, no active bleeding noted. No JVD. CARDIOVASCULAR: Normal rate, regular rhythm. RESPIRATORY: Coarse rhonchi bilateral bases, with basilar crackles. Breath sounds equal bilaterally. GASTROINTESTINAL: Abdomen soft, non-tender, nondistended. No guarding. Abdominal binder enclosing PEG tube, no noted bruising or drainage MUSCULOSKELETAL: Extremities without clubbing, cyanosis, or edema. NEUROLOGICAL: Awake and alert. No gross focal/sensory deficits. Intermittently follows commands in all 4 extremities. Urinary Catheter: Yes Assessment to: Continue A/P Problem List: (1) Respiratory distress ICD Code: R06.03 - Acute respiratory distress Status: Acute (2) Hypoxia ICD Code: R09.02 - Hypoxemia Status: Acute (3) Bilateral pneumonia ICD Code: J18.9 - Pneumonia, unspecified organism Status: Acute Assessment and Plan Assessment This is a chronically ill 86-year-old male admitted from [facility], after tracheal dislodgment and recannulization less than 24 hours, now with acute hypercapnic and hypoxemic respiratory failure,requiring ventilator support. Imaging studies revealing multilobar pneumonia Plan by systems: Neurologic: Toxic encephalopathy-most likely secondary to sepsis Neurochecks per ICU protocol Avoid long-acting sedatives Respiratory: Acute hypoxemic and hypercapnic respiratory failure Healthcare associated pneumonia, most likely pseudomonal S/P tracheostomy dislodgment with recannulization (07/29) Maintain O2 saturation greater than 92% Mechanical vent settings 14/500/50/5, attemot CPAP In the ED the patient received 1 dose of azithromycin, and cefepime Continue antipseudomonal dosing of cefepime and continue azithromycin Duo nebs every 6 hours scheduled, and every 2 hours when necessary Ventilator bundle F/U sputum culture Cardiovascular: Congestive heart failure-type unknown Maintain MAP greater than 65 Telemetry sinus rhythm BNP 173 Initial troponin <0.02 Renal: Martinez in situ from [facility] Replaced Martinez catheter-then obtain UA, C&S -- Strict I/Os FEN/GI: Transaminitis Electrolyte derangement Maintain NPO status for now 07/30 Received 2 L normal saline IV in ED Continue gentle hydration NSS 42 cc/hr Dietary consult for tube feeds- Glucerna Continue home dosing of Reglan 5 mg QID Zofran for nausea Bowel regimen Famotidine for GI prophylaxis Monitor CMP-Sodium 134, alkaline phosphatase 151 ALT 56, AST 61 Replete electrolytes per ICU protocol Heme/ID: Healthcare associated pneumonia, most likely pseudomonal pneumonia Monitor CBC Follow-up urine blood and sputum cultures Empiric antibiotics Azithromycin and cefepime (day 2) Influenza A/B-negative Positive for possible pseudomonal antigen Endocrine: Diabetes mellitus -- SSI -low dose regimen Skin: Heel noted with sacral wound, and 2 skin tears right upper back, lateral lower extremities and raising boots Prophylaxis: GI Prophylaxis Famotidine DVT Prophylaxis -- SCDs Heparin 5000 twice a day Lines: Peripheral IVs 2. Central line if indicated Dispo: my billing statement This patient remains critically ill with one or more organ systems which are or may become a threat to life. I have spent in excess of 35 minutes discontinuously in the care and management of this patient. This time is exclusive of procedures, and includes, but is not limited to, evaluation of the patient, review of the medical record, discussions with family, consultants, nursing staff, or respiratory therapy, and documentation in the medical record. Henrry Sutton MD Jul 31, 2017 11:55
[2017-07-31] MEDS: ACETAMINOPHEN 325 MG TAB PO PRN (15:19)
[2017-07-31] MEDS ORDERED: DEXTROSE 50% IN WATER 50 ML SYRINGE ONE ×2 (16:25→16:55)
[2017-07-31] MEDS: BENEPROTEIN POWDER 1 PACK G-TUBE SCH (18:00)
[2017-07-31] MEDS: DEXTROSE 5% IN WATE 1000ML INJ 1,000 ML IV SCH (18:07)
[2017-08-01] VITALS (16 sets, daily range): BP systolic 84–122; BP diastolic 53–69; PULSE 55–85; RESP 14–24; TEMP 98–99.8; O2SAT 92–100
[2017-08-01] MEDS: RESP: ALBUTEROL 2.5 MG/IPRATROPIUM 0.5 MG NEB (SCH) INH ×4 (03:32→19:42)
[2017-08-01] MEDS: DEXTROSE 5% IN WATE 1000ML INJ 1,000 ML IV SCH ×2 (04:25→16:17)
[2017-08-01] MEDS ORDERED: NOREPINEPHRINE-DEXTROSE DRIP 250 ML IV ONE (05:03)
[2017-08-01] MEDS ORDERED: SODIUM CHLOR 0.9% 250 ML INJ 250 ML IV ONE ×2 (05:15→06:15)
[2017-08-01] MEDS ORDERED: NOREPINEPHRINE-DEXTROSE DRIP 250 ML IV PRN (05:15)
[2017-08-01] MEDS ORDERED: TERBUTALINE INJ 1 MG/ML AMP SQ PRN (05:15)
[2017-08-01 05:40] LABS: AUTOMATED NEUTROPHIL # 3.9 TH/MM3 (1.8-7.7); BASOPHIL % 0.8 % (0.0-2.0); EOSINOPHIL # 0.2 TH/MM3 (0-0.4); LYMPH % 12.8 % (9.0-44.0); LYMPHOCYTE # 0.7 TH/MM3 (1.0-4.8); MEAN CELL VOLUME 92.9 FL (80.0-100.0); MEAN CORPUSCULAR HEMOGLOBIN 31.9 PG (27.0-34.0); MEAN CORPUSCULAR HGB CONC 34.4 % (32.0-36.0); MONO % 8.9 % (0.0-8.0); MONOCYTE # 0.5 TH/MM3 (0-0.9); NEUT % 73.5 % (16.0-70.0); PLATELET COUNT 177 TH/MM3 (150-450); RED BLOOD COUNT 2.08 MIL/MM3 (4.50-5.90); RED CELL DISTRIBUTION WIDTH 15.3 % (11.6-17.2); WHITE BLOOD COUNT 5.3 TH/MM3 (4.0-11.0)
[2017-08-01 05:49] LABS: HEMATOCRIT 19.3 % (39.0-51.0); HEMOGLOBIN 6.6 GM/DL (13.0-17.0)
--- NOTE | 2017-08-01 06:07 | RADRPT ---
EXAM DATE/TIME: 08/01/2017 05:17 [facility] COMPARISON: CHEST SINGLE AP, July 31, 2017, 5:07. INDICATIONS : Respiratory distress. MEDICAL HISTORY : Tracheostomy. SURGICAL HISTORY : None. ENCOUNTER: Subsequent ACUITY: 3 days PAIN SCORE: Non-responsive. LOCATION: Bilateral chest FINDINGS: 2 portable frontal views of the chest show diffuse parenchymal consolidations which are shown no sign ificant change. No discernible effusions. Heart is normal in size. Tracheostomy tube. CONCLUSION: Unchanged diffuse pulmonary infiltrates. Houston Martinez Jr., MD on August 01, 2017 at 6:05 Board Certified Radiologist. This report was verified electronically.
[2017-08-01 06:08] LABS: ALBUMIN 1.6 GM/DL (3.4-5.0); CALCIUM-PROTEIN CORRECTED 8.2 MG/DL (8.5-10.1); CREATININE 0.96 MG/DL (0.60-1.30); MAGNESIUM 2.3 MG/DL (1.5-2.5); TOTAL BILIRUBIN ADULT 0.2 MG/DL (0.2-1.0); TOTAL PROTEIN 4.9 GM/DL (6.4-8.2)
[2017-08-01] MEDS: AZITHROMYCIN INJ 500 MG in SODIUM CHLOR 0.9% 250 ML INJ 250 ML IV SCH (06:17)
[2017-08-01] MEDS: CEFEPIME INJ 2,000 MG in SODIUM CHLORIDE 0.9% INJ 100 ML IV SCH ×3 (06:18→21:36)
[2017-08-01] MEDS: BENEPROTEIN POWDER 1 PACK G-TUBE SCH ×3 (08:00→18:00)
[2017-08-01] MEDS: CHLORHEXIDINE 0.12% (ORAL KIT) 15 ML CUP MT SCH ×2 (08:00→20:00)
[2017-08-01] MEDS: SODIUM CHLORIDE 0.9% FLUSH 10 ML FLUSH IV FLUSH SCH ×2 (08:01→20:41)
[2017-08-01] MEDS: MUPIROCIN 2% OINT 1 APPLIC/GM SYR NASAL SCH ×2 (08:03→20:41)
[2017-08-01] MEDS: FERROUS SULFATE 300 MG /5ML UDC PO SCH ×2 (08:03→20:41)
[2017-08-01] MEDS: FAMOTIDINE 20 MG/2 ML VIAL IV PUSH SCH ×2 (08:03→20:41)
[2017-08-01] MEDS: DOCUSATE SODIUM 50 MG/SENNA 8.6 MG TAB PO SCH ×2 (08:04→20:41)
[2017-08-01] MEDS: METOCLOPRAMIDE HCL 10 MG TAB PO SCH ×4 (08:04→20:41)
[2017-08-01] MEDS: HEPARIN SODIUM - SQ 10,000 UNITS/ML VIAL SQ SCH ×2 (08:05→20:42)
[2017-08-01] MEDS: POTASSIUM CHLOR 20 MEQ PREMIX 100 ML IV PRN ×4 (08:06→16:17)
--- NOTE | 2017-08-01 11:24 | HHI.CCPN ---
Subjective Remarks/Hospital Course This is a 86-year-old male, SNF patient with history of dementia, diabetes, trach and PEG, that was previously admitted on 07/29/17 , after pulling out/ dislodgment of pre-existing tracheostomy. A soft tissue xray of the neck was performed and the tracheostomy was recannulated in the ED. Early this a.m.,the patient was emergently transported back to the ED, due to dyspnea tachypnea reported O2 sat duration apparently 20% according to EMS when they got to [place]. SNF staff reported that the has been having respiratory distress without the day. Multiple attempts to suction his trach all day without improvement. Report the patient was disoriented, and his baseline is GCS of 9. Critical care medicine was consulted SUBJ 07/31: Remains critically ill with bilateral diffuse pneumonia. Oxygenation has improved. Possible strep pneumo antigen positive. 08/01: Remains on mechanical ventilation critically ill. Hemoglobin dropped to 6.6 getting 1 unit of PRBC. Overnight placed on Levophed currently being weaned off. Not tolerating CPAP trials, tachypneic Objective Vital Signs Date Time Temp Pulse Resp B/P (MAP) Pulse Ox O2 Delivery O2 Flow Rate FiO2 08/01/17 10:19 98.6 77 24 122/62 92 08/01/17 08:12 35 07/30/17 07:08 Ventilator Intake and Output 08/01/17 08/01/17 08/01/17 07:59 15:59 23:59 Intake Total 288 ml 20 ml Output Total 450 ml Balance -162 ml 20 ml Result Diagram: 08/01/17 0502 08/01/17 0502 Other Results Microbiology Date/Time Source Procedure Growth Status 07/30/17 05:35 Nasal Washing Influenza Types A,B Antigen (ADIN) - Final NEGATIVE FOR FLU A AND B ANTIGEN.... Complete 07/30/17 10:21 Urine Catheterized Urine Streptococcus pneumoniae Antigen (M - Final Pos S.pneumoniae Antigen Complete Imaging Last Impressions Chest X-Ray 07/30/17 0145 Signed Impressions: Service Date/Time: Sunday, July 30, 2017 03:00 - CONCLUSION: Widespread patchy parenchymal opacities of both lungs. Herman Christina MD Objective Remarks GENERAL: Is an elderly chronically ill-appearing currently on mechanical ventilation, tachypneic on attempted CPAP SKIN: Warm and dry. Pale HEAD: Atraumatic. Normocephalic. EYES: Pupils equal and round. Conjunctival pallor present ENT: Mucous membranes dry NECK: Trachea midline. Tracheostomy in situ. Dried blood noted around trach site, no active bleeding noted. No JVD. CARDIOVASCULAR: Normal rate, regular rhythm. RESPIRATORY: Coarse rhonchi bilateral bases, with few basilar crackles. Breath sounds equal bilaterally. GASTROINTESTINAL: Abdomen soft, non-tender, nondistended. No guarding. Abdominal binder enclosing PEG tube MUSCULOSKELETAL: Extremities without clubbing, cyanosis, or edema. NEUROLOGICAL: Partial eye opening to command. No gross focal/sensory deficits. Intermittently follows commands in all 4 extremities. A/P Problem List: (1) Acute hypoxemic respiratory failure ICD Code: J96.01 - Acute respiratory failure with hypoxia (2) Bilateral pneumonia ICD Code: J18.9 - Pneumonia, unspecified organism Status: Acute (3) Anemia requiring transfusions ICD Code: D64.9 - Anemia, unspecified (4) Respiratory distress ICD Code: R06.03 - Acute respiratory distress Status: Acute (5) Hypoxia ICD Code: R09.02 - Hypoxemia Status: Acute Assessment and Plan Assessment This is a chronically ill 86-year-old male admitted from [facility], after tracheal dislodgment and recannulization less than 24 hours, now with acute hypercapnic and hypoxemic respiratory failure, from pneumonia requiring ventilator support. Plan by systems: Neurologic: Toxic encephalopathy-most likely secondary to sepsis,improving Neurochecks per ICU protocol Avoid long-acting sedatives Respiratory: Acute hypoxemic and hypercapnic respiratory failure Healthcare associated pneumonia S/P tracheostomy dislodgment with recannulization (07/29) Maintain O2 saturation greater than 92% Mechanical vent settings 14/500/50/5, failed CPAP trial today due to tachypnea In the ED the patient received 1 dose of azithromycin, and cefepime Continue antipseudomonal dosing of cefepime and continue azithromycin, add vancomycin until sputum staph aureus sensitivities are back Duo nebs every 6 hours scheduled, and every 2 hours when necessary Ventilator bundle F/U sputum culture Cardiovascular: Congestive heart failure-type unknown Hypotension Maintain MAP greater than 65 Levophed to keep map above 65 currently being weaned Telemetry sinus rhythm BNP 173 Initial troponin <0.02 Renal: Martinez in situ from [facility] Replace Martinez catheter-then obtain UA, C&S -- Strict I/Os FEN/GI: Transaminitis Electrolyte derangement 07/30 Received 2 L normal saline IV in ED Continue gentle hydration D5 NS Dietary consult for tube feeds- Jevity Continue home dosing of Reglan 5 mg QID Zofran for nausea. Bowel regimen Famotidine for GI prophylaxis Monitor CMP-Sodium 134, alkaline phosphatase 151 ALT 56, AST 61 Replete electrolytes per ICU protocol Heme/ID: Healthcare associated pneumonia, multilobar Sputum culture growing staph aureus, GNR Urine pneumococcal antigen positive Urine culture with yeast Monitor CBC Follow-up urine blood and sputum cultures Empiric antibiotics Azithromycin and cefepime (day 3). Start vancomycin until staph sensitivities are back Influenza A/B-negative Positive for possible pneumococcal antigen Transfuse 1 unit PRBC, keep hemoglobin more than 7 Endocrine: Diabetes mellitus Hypoglycemia -- SSI -low dose regimen, if needed Skin: Heel noted with sacral wound, and 2 skin tears right upper back, lateral lower extremities and raising boots Prophylaxis: GI Prophylaxis Famotidine DVT Prophylaxis -- SCDs Heparin 5000 twice a day-hold due to anemia requiring transfusion Lines: Peripheral IVs 2. Central line if indicated Dispo: my billing statement This patient remains critically ill with one or more organ systems which are or may become a threat to life. I have spent in excess of 35 minutes discontinuously in the care and management of this patient. This time is exclusive of procedures, and includes, but is not limited to, evaluation of the patient, review of the medical record, discussions with family, consultants, nursing staff, or respiratory therapy, and documentation in the medical record. Henrry Sutton MD Aug 01, 2017 11:24
[2017-08-01] MEDS ORDERED: Vancomycin Consult Pharmacy 1 EA OTHER SCH (11:30)
[2017-08-01] MEDS ORDERED: VANCOMYCIN INJ 1,000 MG in SODIUM CHLOR 0.9% 250 ML INJ 250 ML IV SCH (11:30)
[2017-08-01] MEDS: VANCOMYCIN 1,000 MG/NS 250 ML IV SCH ×2 (16:14)
--- NOTE | 2017-08-01 16:57 | RADRPT ---
EXAM DATE/TIME: 08/01/2017 16:19 [facility] COMPARISON: CHEST SINGLE AP, August 01, 2017, 5:17. INDICATIONS : Abdominal distention. Possible ileus. MEDICAL HISTORY : None. SURGICAL HISTORY : Tracheostomy. ENCOUNTER: Initial ACUITY: 1 day PAIN SCORE: Non-responsive. LOCATION: Abdomen. FINDINGS: There is a gastrostomy tube in satisfactory position. There is a moderate amount of stool within the colon. No findings to indicate bowel obstruction are seen. No abnormal calcifications are evident. No organomegaly is identified. There degenerative changes in the lower lumbar spine and hips bilaterally. CONCLUSION: 1. Moderate amount of stool within the colon. Exam is otherwise unremarkable. Bear Forte MD on August 01, 2017 at 16:54 Board Certified Radiologist. This report was verified electronically.
[2017-08-01] MEDS: metroNIDAZOLE 500 MG INJ 100 ML IV SCH (18:06)
[2017-08-01] MEDS: CHLORHEXIDINE GLUCONATE 2 % 1 PACK (2 CLOTHS) TOP SCH (19:42)
[2017-08-01 23:38] LABS: BASOPHIL % 0.8 % (0.0-2.0); EOSINOPHIL # 0.2 TH/MM3 (0-0.4); EOSINOPHIL % 2.8 % (0.0-4.0); HEMOGLOBIN 8.6 GM/DL (13.0-17.0); LYMPH % 19.8 % (9.0-44.0); LYMPHOCYTE # 1.2 TH/MM3 (1.0-4.8); MEAN CELL VOLUME 91.1 FL (80.0-100.0); MEAN CORPUSCULAR HEMOGLOBIN 31.4 PG (27.0-34.0); MEAN CORPUSCULAR HGB CONC 34.4 % (32.0-36.0); MEAN PLATELET VOLUME 6.7 FL (7.0-11.0); MONO % 8.6 % (0.0-8.0); MONOCYTE # 0.5 TH/MM3 (0-0.9); PLATELET COUNT 179 TH/MM3 (150-450); RED BLOOD COUNT 2.74 MIL/MM3 (4.50-5.90); RED CELL DISTRIBUTION WIDTH 15.3 % (11.6-17.2); WHITE BLOOD COUNT 5.9 TH/MM3 (4.0-11.0)
[2017-08-01 23:52] LABS: ALBUMIN 1.6 GM/DL (3.4-5.0); AST (GOT) 31 U/L (15-37); BICARBONATE 25.6 MEQ/L (21.0-32.0); BLOOD UREA NITROGEN 26 MG/DL (7-18); CALCIUM 7.7 MG/DL (8.5-10.1); CHLORIDE 103 MEQ/L (98-107); CREATININE 1.01 MG/DL (0.60-1.30); GLOMERULAR FILTRATION RATE 70 ML/MIN (>89); GLUCOSE,RANDOM 76 MG/DL (74-106); SODIUM (NA) 137 MEQ/L (136-145)
[2017-08-01 23:53] LABS: ALT (GPT) 34 U/L (12-78)
[2017-08-01 23:55] LABS: ALKALINE PHOSPHATASE 94 U/L (45-117); TOTAL BILIRUBIN ADULT 0.3 MG/DL (0.2-1.0); TOTAL PROTEIN 5.2 GM/DL (6.4-8.2)
[2017-08-02] VITALS (11 sets, daily range): BP systolic 94–141; BP diastolic 53–78; PULSE 64–84; RESP 15–26; TEMP 97.9–99; O2SAT 96–98
[2017-08-02] MEDS: metroNIDAZOLE 500 MG INJ 100 ML IV SCH ×2 (00:35→08:04)
[2017-08-02] MEDS: ACETAMINOPHEN 325 MG TAB PO PRN (01:32)
[2017-08-02] MEDS: DEXTROSE 5% IN WATE 1000ML INJ 1,000 ML IV SCH (02:23)
[2017-08-02] MEDS: RESP: ALBUTEROL 2.5 MG/IPRATROPIUM 0.5 MG NEB (SCH) INH ×3 (02:56→15:58)
[2017-08-02] MEDS: AZITHROMYCIN INJ 500 MG in SODIUM CHLOR 0.9% 250 ML INJ 250 ML IV SCH (05:07)
[2017-08-02 05:41] LABS: AUTOMATED NEUTROPHIL # 3.4 TH/MM3 (1.8-7.7); BASOPHIL % 0.9 % (0.0-2.0); EOSINOPHIL # 0.2 TH/MM3 (0-0.4); EOSINOPHIL % 3.5 % (0.0-4.0); HEMATOCRIT 24.7 % (39.0-51.0); HEMOGLOBIN 8.5 GM/DL (13.0-17.0); LYMPH % 21.1 % (9.0-44.0); LYMPHOCYTE # 1.1 TH/MM3 (1.0-4.8); MEAN CELL VOLUME 90.6 FL (80.0-100.0); MEAN CORPUSCULAR HEMOGLOBIN 31.1 PG (27.0-34.0); MEAN CORPUSCULAR HGB CONC 34.4 % (32.0-36.0); MEAN PLATELET VOLUME 7.3 FL (7.0-11.0); MONO % 9.6 % (0.0-8.0); MONOCYTE # 0.5 TH/MM3 (0-0.9); NEUT % 64.9 % (16.0-70.0); PLATELET COUNT 176 TH/MM3 (150-450); RED BLOOD COUNT 2.73 MIL/MM3 (4.50-5.90); RED CELL DISTRIBUTION WIDTH 15.3 % (11.6-17.2); WHITE BLOOD COUNT 5.2 TH/MM3 (4.0-11.0)
[2017-08-02] MEDS: CEFEPIME INJ 2,000 MG in SODIUM CHLORIDE 0.9% INJ 100 ML IV SCH ×2 (06:02→15:24)
[2017-08-02 06:03] LABS: ALBUMIN 1.7 GM/DL (3.4-5.0); ALT (GPT) 32 U/L (12-78); AST (GOT) 32 U/L (15-37); BICARBONATE 26.6 MEQ/L (21.0-32.0); BLOOD UREA NITROGEN 24 MG/DL (7-18); CALCIUM 7.7 MG/DL (8.5-10.1); CHLORIDE 102 MEQ/L (98-107); CREATININE 0.99 MG/DL (0.60-1.30); GLOMERULAR FILTRATION RATE 72 ML/MIN (>89); GLUCOSE,RANDOM 77 MG/DL (74-106); SODIUM (NA) 136 MEQ/L (136-145)
[2017-08-02 06:05] LABS: ALKALINE PHOSPHATASE 92 U/L (45-117); TOTAL BILIRUBIN ADULT 0.3 MG/DL (0.2-1.0); TOTAL PROTEIN 5.1 GM/DL (6.4-8.2)
--- NOTE | 2017-08-02 06:05 | RADRPT ---
EXAM DATE/TIME: 08/02/2017 05:16 [facility] COMPARISON: CHEST SINGLE AP, August 01, 2017, 5:17. INDICATIONS : Short of breath. MEDICAL HISTORY : Tracheostomy. SURGICAL HISTORY : None. ENCOUNTER: Subsequent ACUITY: 3 days PAIN SCORE: 0/10 LOCATION: Bilateral chest FINDINGS: Single portable frontal view the chest shows diffuse bilateral pulmonary infiltrates have progressed from the prior study. No discrete effusions. Heart normal size. Tracheostomy tube noted. CONCLUSION: Worsening diffuse pulmonary infiltrates. Houston Martinez Jr., MD on August 02, 2017 at 6:04 Board Certified Radiologist. This report was verified electronically.
[2017-08-02] MEDS: BENEPROTEIN POWDER 1 PACK G-TUBE SCH ×2 (08:04→12:34)
[2017-08-02] MEDS: CHLORHEXIDINE 0.12% (ORAL KIT) 15 ML CUP MT SCH (08:05)
[2017-08-02] MEDS: HEPARIN SODIUM - SQ 10,000 UNITS/ML VIAL SQ SCH (08:05)
[2017-08-02] MEDS: FERROUS SULFATE 300 MG /5ML UDC PO SCH (08:05)
[2017-08-02] MEDS: MUPIROCIN 2% OINT 1 APPLIC/GM SYR NASAL SCH (08:05)
[2017-08-02] MEDS: FAMOTIDINE 20 MG/2 ML VIAL IV PUSH SCH (08:05)
[2017-08-02] MEDS: DOCUSATE SODIUM 50 MG/SENNA 8.6 MG TAB PO SCH (08:07)
[2017-08-02] MEDS: VANCOMYCIN 1,000 MG/NS 250 ML IV SCH ×2 (08:07)
[2017-08-02] MEDS: SODIUM CHLORIDE 0.9% FLUSH 10 ML FLUSH IV FLUSH SCH (08:07)
[2017-08-02] MEDS: METOCLOPRAMIDE HCL 10 MG TAB PO SCH ×2 (08:08→12:34)
--- NOTE | 2017-08-02 08:55 | HHI.CCPN ---
Subjective Remarks/Hospital Course This is a 86-year-old male, SNF patient with history of dementia, diabetes, trach and PEG, that was previously admitted on 07/29/17 , after pulling out/ dislodgment of pre-existing tracheostomy. A soft tissue xray of the neck was performed and the tracheostomy was recannulated in the ED. Early this a.m.,the patient was emergently transported back to the ED, due to dyspnea tachypnea reported O2 sat duration apparently 20% according to EMS when they got to [place]. SNF staff reported that the has been having respiratory distress without the day. Multiple attempts to suction his trach all day without improvement. Report the patient was disoriented, and his baseline is GCS of 9. Critical care medicine was consulted SUBJ 07/31: Remains critically ill with bilateral diffuse pneumonia. Oxygenation has improved. Possible strep pneumo antigen positive. 08/01: Remains on mechanical ventilation critically ill. Hemoglobin dropped to 6.6 getting 1 unit of PRBC. Overnight placed on Levophed currently being weaned off. Not tolerating CPAP trials, tachypneic. Patient remains in severe sepsis with septic shock and acute organ dysfunction assiciated with respiratory failure, bilateral pneumonia, and acute kidney injury. 08/02: Diffuse bilateral infiltrates, sputum growth well documented - MRSA. Positive Strep antigen noted in urine. Hgb 8.5, WBC 5200. Struggling on T-piece. Objective Vital Signs Date Time Temp Pulse Resp B/P (MAP) Pulse Ox O2 Delivery O2 Flow Rate FiO2 08/02/17 08:16 35 08/02/17 08:16 96 08/02/17 04:00 97.9 68 19 107/58 (74) 07/30/17 07:08 Ventilator Intake and Output 08/02/17 08/02/17 08/03/17 08:00 16:00 00:00 Intake Total 2546 ml Output Total 650 ml Balance 1896 ml Result Diagram: 08/02/17 0437 08/02/17 0437 Other Results Microbiology Date/Time Source Procedure Growth Status 07/30/17 10:21 Urine Catheterized Urine Urine Culture - Final Ashley Krusei Complete 07/30/17 10:21 Urine Catheterized Urine Streptococcus pneumoniae Antigen (M - Final Pos S.pneumoniae Antigen Complete Imaging Last Impressions Chest X-Ray 07/30/17 0149 Signed Impressions: Service Date/Time: Sunday, July 30, 2017 03:00 - CONCLUSION: Widespread patchy parenchymal opacities of both lungs. Herman Christina MD Objective Remarks GENERAL: Is an elderly chronically ill-appearing currently on mechanical ventilation, tachypneic on attempted CPAP SKIN: Warm and dry. Pale HEAD: Atraumatic. Normocephalic. EYES: Pupils equal and round. Conjunctival pallor present ENT: Mucous membranes moist NECK: Trachea midline. Tracheostomy clean, dry, no active bleeding noted. No JVD. CARDIOVASCULAR: Normal rate, regular rhythm. RESPIRATORY: Coarse rhonchi bilateral, basilar crackles. Breath sounds equal bilaterally otherwise. GASTROINTESTINAL: Abdomen soft, non-tender, nondistended. No guarding. Abdominal binder enclosing PEG tube MUSCULOSKELETAL: Extremities without clubbing, cyanosis, or edema. Adequately perfused. NEUROLOGICAL: Partial eye opening to command. No gross focal/sensory deficits. Intermittently follows commands in all 4 extremities. A/P Problem List: (1) Acute hypoxemic respiratory failure ICD Code: J96.01 - Acute respiratory failure with hypoxia Status: Acute (2) Bilateral pneumonia ICD Code: J18.9 - Pneumonia, unspecified organism Status: Acute (3) Anemia requiring transfusions ICD Code: D64.9 - Anemia, unspecified Status: Chronic (4) Respiratory distress ICD Code: R06.03 - Acute respiratory distress Status: Acute (5) Hypoxia ICD Code: R09.02 - Hypoxemia Status: Acute Assessment and Plan Assessment This is a chronically ill 86-year-old male admitted from SNF, after tracheal dislodgment and recannulization less than 24 hours, now with acute hypercapnic and hypoxemic respiratory failure, from pneumonia requiring ventilator support. Plan by systems: Neurologic: Toxic encephalopathy-most likely secondary to sepsis,improving Neurochecks per ICU protocol Avoid long-acting sedatives Respiratory: Acute hypoxemic and hypercapnic respiratory failure Healthcare associated pneumonia S/P tracheostomy dislodgment with recannulization (07/29) Maintain O2 saturation greater than 92% Mechanical vent settings 14/500/50/5, failed CPAP trial today due to tachypnea In the ED the patient received 1 dose of azithromycin, and cefepime Continue antipseudomonal dosing of cefepime and continue azithromycin, add vancomycin until sputum staph aureus sensitivities are back Duo nebs every 6 hours scheduled, and every 2 hours when necessary Ventilator bundle F/U sputum culture Cardiovascular: Congestive heart failure-type unknown Hypotension Maintain MAP greater than 65 Levophed to keep map above 65 currently being weaned Telemetry sinus rhythm BNP 173 Troponin <0.02 Renal: Martinez in situ from SNF Replace Martinez catheter-then obtain UA, C&S -- Strict I/Os FEN/GI: Transaminitis Electrolyte derangement 07/30 Received 2 L normal saline IV in ED Continue gentle hydration D5 NS Dietary consult for tube feeds- Jevity Continue home dosing of Reglan 5 mg QID Zofran for nausea. Bowel regimen Famotidine for GI prophylaxis Monitor CMP-Sodium 134, alkaline phosphatase 151 ALT 56, AST 61 Replete electrolytes per ICU protocol Heme/ID: Healthcare associated pneumonia, multilobar Sputum culture growing staph aureus, GNR Urine pneumococcal antigen positive Urine culture with yeast Monitor CBC Follow-up urine blood and sputum cultures Empiric antibiotics Azithromycin and cefepime (day 3). Start vancomycin until staph sensitivities are back Influenza A/B-negative Positive for possible pneumococcal antigen Transfuse 1 unit PRBC, keep hemoglobin more than 7 -> Hgb 8.5 today. Endocrine: Diabetes mellitus Hypoglycemia -- SSI -low dose regimen, if needed Skin: Heel noted with sacral wound, and 2 skin tears right upper back, lateral lower extremities and raising boots Prophylaxis: GI Prophylaxis Famotidine DVT Prophylaxis -- SCDs Heparin 5000 twice a day-hold still due to anemia requiring transfusion Lines: Peripheral IVs 2. Central line if indicated Dispo: Overall impression: Debilitated, elderly man with bilateral pneumonia and respiratory failure. On Vancomycin, Cefepime, and Azithromycin. Consolidations not improving. Patient remains in severe sepsis with septic shock and acute organ dysfunction associated with respiratory failure, bilateral pneumonia, and acute kidney injury. Yung Dalton MD Aug 02, 2017 08:54
--- NOTE | 2017-08-02 13:52 | HHI.DS ---
Discharge Summary Admission Date Jul 30, 2017 at 05:26 Discharge Date: Aug 02, 2017 Admitting Diagnosis Respiratory distress/hypoxia/pneumonia/severe sepsis (1) Septic shock ICD Code: A41.9 - Sepsis, unspecified organism; R65.21 - Severe sepsis with septic shock Diagnosis: Principal Status: Acute (2) Severe sepsis with acute organ dysfunction ICD Code: A41.9 - Sepsis, unspecified organism; R65.20 - Severe sepsis without septic shock Diagnosis: Principal Status: Acute (3) Acute hypoxemic respiratory failure ICD Code: J96.01 - Acute respiratory failure with hypoxia Diagnosis: Principal Status: Acute (4) Bilateral pneumonia ICD Code: J18.9 - Pneumonia, unspecified organism Diagnosis: Principal Status: Acute (5) Anemia requiring transfusions ICD Code: D64.9 - Anemia, unspecified Diagnosis: Secondary Status: Chronic (6) MINDI (acute kidney injury) ICD Code: N17.9 - Acute kidney failure, unspecified Diagnosis: Secondary Status: Acute Procedures Mechanical ventilation Brief History HPI This is a 86-year-old male, SNF patient with history of dementia, diabetes, trach and PEG, that was previously admitted on 07/29/17 , after pulling out/ dislodgment of pre-existing tracheostomy. A soft tissue xray of the neck was performed and the tracheostomy was recannulated in the ED. Early this a.m.,the patient was emergently transported back to the ED, due to dyspnea tachypnea reported O2 sat duration 6 in the 20s on presentation. SNF staff reported that the has been having respiratory distress without the day. Multiple attempts to suction his trach all day without improvement. Report the patient was disoriented, and his baseline is GCS of 9. Critical care medicine was consulted Modifying Factors: None Associated Signs & Symptoms: Respiratory distress, hypoxia, cyanosis Risk Factors: Recent trach replacement History PFSH Past Medical History Diabetes: Yes Patient Takes Glucophage: No Psychiatric: Yes (DEMENTIA) Respiratory: Yes (RESP. FAILURE) Past Surgical History Other Surgery: Yes (TRACH, G. TUBE.) Social History Alcohol Use: No Tobacco Use: No Substance Use: No Allergies-Medications Allergies-Medications (Allergen,Severity, Reaction): Coded Allergies: tomato (Unverified Allergy, Severe, 07/29/17) Reported Meds & Prescriptions Reported Meds & Active Scripts Active Reported Metoclopramide (Metoclopramide HCl) 5 Mg Tab 5 Mg PO QID Hyoscyamine (Hyoscyamine Sulfate) 0.125 Mg Tab 0.125 Mg PO Q4H Humalog Inj (Insulin Human Lispro) 1,000 Unit/10 Ml Vial 5-25 Units SQ ACHS Max dose at bedtime:( )units; sugars < 70,(0)units; sugars 150-199,(5)units; sugars 200-249,(10)units; sugars 250-299,(15)units; sugars 300-349,(20)units; sugars more than 349,(25)units. Ferrous Sulfate Liq (Ferrous Sulfate) 300 Mg/5 Ml Soln 325 Mg PO BID Docusate Sodium Liq (Docusate Sodium) 50 Mg/5 Ml Liq 100 Mg PO BID Famotidine 20 Mg Tab 20 Mg PO DAILY ROS Review of Systems ROS Limitations: Altered Mental Status CBC/BMP: 08/02/17 0437 08/02/17 0437 Significant Findings Laboratory Tests Test 07/31/17 04:04 08/01/17 05:02 08/01/17 05:45 08/01/17 16:58 Red Blood Count 2.28 MIL/MM3 (4.50-5.90) 2.08 MIL/MM3 (4.50-5.90) Hemoglobin 7.2 GM/DL (13.0-17.0) 6.6 GM/DL (13.0-17.0) 9.1 GM/DL (13.0-17.0) Hematocrit 21.1 % (39.0-51.0) 19.3 % (39.0-51.0) Mean Platelet Volume 6.9 FL (7.0-11.0) Monocytes (%) (Auto) 9.7 % (0.0-8.0) 8.9 % (0.0-8.0) Blood Urea Nitrogen 36 MG/DL (7-18) 30 MG/DL (7-18) Random Glucose 57 MG/DL (74-106) 124 MG/DL (74-106) Calcium Level 7.7 MG/DL (8.5-10.1) 7.0 MG/DL (8.5-10.1) Potassium Level 3.4 MEQ/L (3.5-5.1) 3.2 MEQ/L (3.5-5.1) Carbon Dioxide Level 33.1 MEQ/L (21.0-32.0) Estimat Glomerular Filtration Rate 70 ML/MIN (>89) 74 ML/MIN (>89) Neutrophils (%) (Auto) 73.5 % (16.0-70.0) Lymphocytes # (Auto) 0.7 TH/MM3 (1.0-4.8) Total Protein 4.9 GM/DL (6.4-8.2) Albumin 1.6 GM/DL (3.4-5.0) Protein Corrected Calcium 8.2 MG/DL (8.5-10.1) Test 08/01/17 23:16 08/02/17 04:37 Red Blood Count 2.74 MIL/MM3 (4.50-5.90) 2.73 MIL/MM3 (4.50-5.90) Hemoglobin 8.6 GM/DL (13.0-17.0) 8.5 GM/DL (13.0-17.0) Hematocrit 25.0 % (39.0-51.0) 24.7 % (39.0-51.0) Mean Platelet Volume 6.7 FL (7.0-11.0) Monocytes (%) (Auto) 8.6 % (0.0-8.0) 9.6 % (0.0-8.0) Blood Urea Nitrogen 26 MG/DL (7-18) 24 MG/DL (7-18) Total Protein 5.2 GM/DL (6.4-8.2) 5.1 GM/DL (6.4-8.2) Albumin 1.6 GM/DL (3.4-5.0) 1.7 GM/DL (3.4-5.0) Calcium Level 7.7 MG/DL (8.5-10.1) 7.7 MG/DL (8.5-10.1) Estimat Glomerular Filtration Rate 70 ML/MIN (>89) 72 ML/MIN (>89) Imaging CXR: Diffuse bilateral dense infiltrates PE at Discharge Scattered rhonchi, requiring increased FiO2. Transfer Summary Chronic respiratory failure developed sudden hypoxemia at skilled facility after pulling out his trach tube. Now with persistent bilateral dense pneumonia. Stable hemodynamics. Requires pneumonia treatment and ventilator weaning. Hospital Course This is a 86-year-old male, SNF patient with history of dementia, diabetes, trach and PEG, that was previously admitted on 07/29/17 , after pulling out/ dislodgment of pre-existing tracheostomy. A soft tissue xray of the neck was performed and the tracheostomy was recannulated in the ED. Early this a.m.,the patient was emergently transported back to the ED, due to dyspnea tachypnea reported O2 sat duration apparently 20% according to EMS when they got to [place]. SNF staff reported that the has been having respiratory distress without the day. Multiple attempts to suction his trach all day without improvement. Report the patient was disoriented, and his baseline is GCS of 9. Critical care medicine was consulted SUBJ 07/31: Remains critically ill with bilateral diffuse pneumonia. Oxygenation has improved. Possible strep pneumo antigen positive. 08/01: Remains on mechanical ventilation critically ill. Hemoglobin dropped to 6.6 getting 1 unit of PRBC. Overnight placed on Levophed currently being weaned off. Not tolerating CPAP trials, tachypneic. Patient remains in severe sepsis with septic shock and acute organ dysfunction associated with respiratory failure, bilateral pneumonia, and acute kidney injury. 08/02: Diffuse bilateral infiltrates, sputum growth well documented - MRSA. Positive Strep antigen noted in urine. Hgb 8.5, WBC 5200. Struggling on T-piece. Pt Condition on Discharge: Fair Discharge Disposition: Disch to Another Hospital Yung Dalton MD Aug 02, 2017 13:51
[2017-08-03] MEDS ORDERED: PHARMACY ORDERED LAB ONE (20:45)
--- NOTE | 2017-08-13 17:39 | PQ ---
Physician Query Response Document PATIENT: JERZY SANTACRUZ : 1930 ADMIT DATE: 07/30/2017 5:26 AM DISCH DATE: 08/02/2017 4:05 PM RESPONDING PROVIDER #: [email or web address] QUERY TEXT: CDS Clarification Severe sepsis with septic shock in the setting of Sepsis with hypotension requiring treatment with IV F boluses and Levophed gtt. Other explanation of clinical findings. Unable to determine (no explanation for clinical findings). The patient's Clinical Indicators include: The medical record reflects the following clinical findings, treatment, and risk factors. * Clinical Indicators: On admit HR 92; 141/97 -> 83/45 -> 73/35; Post-treatment 107/58 * Risk Factors: Sepsis, hypotension * Treatment: Initially 2L NS bolus, Levophed gtt @ 1 MCG/MIN started on 08/01 Please clarify and document your clinical opinion in the progress notes and discharge summary includi ng the definitive and/or presumptive diagnosis (suspected or probable), related to the above clinical findings. Please include clinical findings supporting your diagnosis. Thank you, Medina Umanzor CDS: Medina Noé Patient Unit: [id number] Contact Number: [phone] Room: 1324 Query created by: Medina Umanzor on 08/02/2017 11:18 AM RESPONSE TEXT: Provider disagreed with this CDI query. This was not a significant invasive infection. Electronically signed by: Shree Dalton MD 08/13/2017 5:35 PM
--- NOTE | 2017-08-13 17:43 | PQ ---
Physician Query Response Document PATIENT: JERZY SANTACRUZ : 1930 ADMIT DATE: 07/30/2017 5:26 AM DISCH DATE: 08/02/2017 4:05 PM RESPONDING PROVIDER #: [email or web address] QUERY TEXT: Clinical Significance The diagnosis documented below requires documentation to state the clinical significance: Ashley in urine. Please respond and also state in your next progress note whether the condition is: -- Clinically insignificant -- Clinically significant, and please also state why it is clinically significant -- Unable to determine clinical significance -- Other, please specify The patient's Clinical Indicators include: Progress Note 07/31/17 documents: Renal: Martinez in situ from SNF Replaced Martinez catheter-then obtain UA, C S -- Strict I/Os Nursing notes indicate Martinez was replaced on 07/30/17. Urine culture results: Ashley Krusei Patient received Metronidazole on 08/02/17. Query created by: Mirian Hooker on 08/08/2017 6:29 PM RESPONSE TEXT: Provider disagreed with this CDI query. Not an invasive infection QUERY TEXT: CDS Clarification Severe sepsis with septic shock in the setting of Sepsis with hypotension requiring treatment with IV F boluses and Levophed gtt. Other explanation of clinical findings. Unable to determine (no explanation for clinical findings). The patient's Clinical Indicators include: The medical record reflects the following clinical findings, treatment, and risk factors. * Clinical Indicators: On admit HR 92; 141/97 -> 83/45 -> 73/35; Post-treatment 107/58 * Risk Factors: Sepsis, hypotension * Treatment: Initially 2L NS bolus, Levophed gtt @ 1 MCG/MIN started on 08/01 Please clarify and document your clinical opinion in the progress notes and discharge summary includi ng the definitive and/or presumptive diagnosis (suspected or probable), related to the above clinical findings. Please include clinical findings supporting your diagnosis. Thank you, Medina Umanzor CDS: Medina Cyrlowe Patient Unit: [id number] Contact Number: [phone] Room: 1324 Query created by: Medina Umanzor on 08/02/2017 11:18 AM RESPONSE TEXT: Provider disagreed with this CDI query. This was not a significant invasive infection. Electronically signed by: Shree Dalton MD 08/13/2017 5:39 PM
== END 2017-08-02 16:05 | DRG 871 ==
LOC: NEPE 01:41 → NEDA 05:26 → N03B 07:34
PROVIDERS: ADMIT Internal Medicine Critical Care Medicine; ATTEND Internal Medicine Critical Care Medicine
PROC: 5A1945Z Respiratory Ventilation, 24-96 Consecutive Hours (ICD-10-PCS; principal; 2017-07-30)
PROC: 30233N1 Transfusion of Nonautologous Red Blood Cells into Peripheral Vein, Percutaneous Approach (ICD-10-PCS; 2017-08-01)
DX: A41.9 Sepsis, unspecified organism (principal); R65.21 Severe sepsis with septic shock; J96.21 Acute and chronic respiratory failure with hypoxia; N17.9 Acute kidney failure, unspecified; J18.9 Pneumonia, unspecified organism; G92 Toxic encephalopathy; Z93.0 Tracheostomy status; Z93.1 Gastrostomy status; D64.9 Anemia, unspecified; F03.90 Unspecified dementia, unspecified severity, without behavioral disturbance, psychotic disturbance, mood disturbance, and anxiety; E11.649 Type 2 diabetes mellitus with hypoglycemia without coma; Z79.4 Long term (current) use of insulin; R40.2420 Glasgow coma scale score 9-12, unspecified time; R74.0 Nonspecific elevation of levels of transaminase and lactic acid dehydrogenase [LDH]; S30.810A Abrasion of lower back and pelvis, initial encounter; X58.XXXA Exposure to other specified factors, initial encounter
CPT/HCPCS: 36430; 36600; 71045; 74018; 80048; 80053; 81001; 82550; 82552; 82805; 82948; 83605; 83735; 83880; 84100; 84484; 85018; 85025; 85610; 85730; 86403; 86850; 86900; 86901; 86920; 87040; 87070; 87077; 87086; 87106; 87186; 87205; 87449; 87641; 87804; 93005; 94002; 94003; 94640; 94664; 96360; 96361; A7521; J0456; J0692; J1644; J3370; J3480; J7030; J7040; J7050; J7070; P9016